=== PATIENT | male | born 1995 | race Two or more races ===

== ENCOUNTER 2021-06-18 07:50 | Emergency (ER) | payer SELFPAY ==
[~2021-06-18] VITALS: Ht 177.8 cm; Wt 72.6 kg
[2021-06-18 08:10] VITALS: BP 126/75
== END 2021-06-18 09:51 | disposition home or self-care (01) ==
LOC: ER 07:50
DX: J02.9 Acute pharyngitis, unspecified (principal); Z20.822 Contact with and (suspected) exposure to COVID-19
CPT/HCPCS: 36415; 87426

== ENCOUNTER 2022-05-28 12:41 | Emergency (ER) | payer SELFPAY ==
[~2022-05-28] VITALS: Ht 177.8 cm; Wt 74.8 kg
[2022-05-28 14:49] VITALS: BP 142/70
[2022-05-28] MEDS ORDERED: KETOROLAC TROMETH 60MG/2ML VIAL IM ONE (15:30)
[2022-05-28] MEDS ORDERED: CYCL-837 PO (15:34)
[2022-05-28] MEDS ORDERED: IBUP800T27 PO (15:34)
[2022-05-28] MEDS ORDERED: HYDR50CA PO (15:34)
== END 2022-05-28 15:50 | disposition home or self-care (01) ==
LOC: ER 12:41
DX: S39.012A Strain of muscle, fascia and tendon of lower back, initial encounter (principal); F41.9 Anxiety disorder, unspecified; F17.210 Nicotine dependence, cigarettes, uncomplicated; X50.0XXA Overexertion from strenuous movement or load, initial encounter; Y93.89 Activity, other specified; Y92.89 Other specified places as the place of occurrence of the external cause; Y99.8 Other external cause status
CPT/HCPCS: 96372; 99283; J1885

== ENCOUNTER 2022-07-07 03:16 | Emergency (ER) | payer BC, OTHER ==
[~2022-07-07] VITALS: Ht 177.8 cm; Wt 85.0 kg
[~2022-07-07 03:16] MED LIST: CYCL-837 PO; HYDR50CA PO; IBUP800T27 PO
[2022-07-07] MEDS ORDERED: TETRACAINE HCL 0.5% OPTH(EYE) SOLN 4ML EACHEYE ONE (07:15)
[2022-07-07] MEDS ORDERED: FLUORESCEIN SOD OPTH TEST STRIP OP ONE (07:15)
[2022-07-07 07:45] VITALS: BP 120/68
[2022-07-07] MEDS ORDERED: TOBR0.3S EACHEYE (07:55)
== END 2022-07-07 08:03 | disposition home or self-care (01) ==
LOC: ER 03:16
DX: S05.01XA Injury of conjunctiva and corneal abrasion without foreign body, right eye, initial encounter (principal); S05.02XA Injury of conjunctiva and corneal abrasion without foreign body, left eye, initial encounter; F17.210 Nicotine dependence, cigarettes, uncomplicated; X58.XXXA Exposure to other specified factors, initial encounter; Y93.89 Activity, other specified; Y92.89 Other specified places as the place of occurrence of the external cause; Y99.8 Other external cause status

== ENCOUNTER 2023-04-01 08:00 | Emergency (ER) | payer BC, MEDICAID ==
[~2023-04-01] VITALS: Ht 177.8 cm; Wt 77.4 kg
[~2023-04-01 08:00] MED LIST changes: +TOBR0.3S EACHEYE
[2023-04-01 08:41] VITALS: BP 123/73
[2023-04-01] MEDS ORDERED: KETOROLAC TROMETH 30 MG/ML 1ML VIAL IM ONE (10:30)
[2023-04-01] MEDS ORDERED: LIDO5PAD8 EX (10:33)
[2023-04-01] MEDS ORDERED: IBUP600T28 PO (10:33)
[2023-04-01] MEDS ORDERED: CYCL-839 PO (10:34)
== END 2023-04-01 10:58 | disposition home or self-care (01) ==
LOC: ER 08:00
DX: S39.012A Strain of muscle, fascia and tendon of lower back, initial encounter (principal); X50.0XXA Overexertion from strenuous movement or load, initial encounter; Y93.89 Activity, other specified; Y92.89 Other specified places as the place of occurrence of the external cause; Y99.8 Other external cause status
CPT/HCPCS: 72070; 72100; 96372; 99284; J1885